=== PATIENT | female | born 1955 | race Caucasian/White ===

== ENCOUNTER 2019-11-04 08:30 | Day surgery (SDC) | payer OTHER ==
[~2019-11-04] VITALS: Ht 170.2 cm; Wt 79.4 kg
[~2019-11-04 08:30] MED LIST: ADULT ASPIRIN R81 MG PO; AMLODIPINE BESYL5 MG PO; CALCIUM 600 +1 EAC2 PO; CHANTIX1 MG PO; GABAPENTIN300 MG PO; INDOMETHACIN50 MG PO; LOVASTATIN40 MG PO; OMEPRAZOLE20 MG PO; TRAZODONE HCL50 MG PO; ZESTRIL40 MG PO
--- NOTE | 2019-11-04 10:53 | NUR ---
11/04/19 1053 Ligia Finley 1046 PT ARRIVED TO PACU ON 2L VIA NC, PT WAKES TO VERBAL STIMULI AND DENIES PAIN AND NAUSEA. PLAN OF CARE DISCUSSED. PT FALLS BACK TO SLEEP EASILY. VSS.
--- NOTE | 2019-11-05 10:14 | OR ---
[facility] [address] [place], [place] [address] Signed DATE OF OPERATION: 11/04/2019 SURGEON: Candice Mcdermott MD PREOPERATIVE DIAGNOSES: 1. Gastroesophageal reflux, on PPI medication. 2. Colon screening. POSTOPERATIVE DIAGNOSES: 1. Jiuvmqzi-gb-aptwt size hiatal hernia with Soto's esophagus. 2. Hyperplastic polyps of rectosigmoid and rectum. PROCEDURES PERFORMED: 1. Esophagogastroduodenoscopy with biopsy. 2. Total colonoscopy to cecum with cold morcellation polypectomy x5. ANESTHESIA: Intravenous sedation, fentanyl 100 mcg, Versed 7 mg. INDICATION: This 64-year-old white woman is a patient of Dr. Cassi Hanley of the [facility]. She underwent colonoscopy at the [facility] in 2013 and was sought not to have any significant pathologic findings at that time. She has been recommended to have surveillance colonoscopy. She is symptom-free. Additionally, she does have reflux symptoms. She does take PPI medication for this. She has no dysphagia. She does take indomethacin on a daily basis related to arthritis problems. Additionally, she smokes 1/2 pack of cigarettes a day. She does not drink alcohol particularly. She is admitted at this time to undergo upper endoscopy and colonoscopy. She understands the risks of bleeding, infection, and perforation. FINDINGS: Upper endoscopy showed a qcrxvvzv-kc-xxwra size hiatal hernia with significant Soto's esophagus. There was no sign of stricture or neoplasm. Stomach, duodenum, vocal cords and proximal esophagus were normal. Colonoscopy showed an adequate prep. Colonoscopy was undertaken to the cecum which was challenging as was the redundant colon. She had only hyperplastic-appearing polyps of the rectosigmoid and rectum. Five such polyps were excised. Electronically Signed By: CANDICE MCDERMOTT MD 11/05/19 1014 PATIENT NAME: RITA SOUSA OPERATIVE REPORT DATE OF : 53 REPORT #: [id number] PHYSICIAN: CANDICE MCDERMOTT MD PCP: CASSI HANLEY MD REPORT IS CONFIDENTIAL AND NOT TO BE RELEASED WITHOUT AUTHORIZATION [facility] [address] [place], [place] [address] Signed DESCRIPTION OF PROCEDURE: The patient was brought to the endoscopy suite, given topical Hurricaine spray, hypopharyngeal anesthesia and placed in lateral decubitus position. She was given intravenous sedation to the point of slurred speech and nystagmus with full cardiopulmonary monitoring. A bite block was placed. An Olympus video upper endoscope was passed in the hypopharynx. The vocal cords visualized as normal. The scope was advanced to the esophagus throughout its length. It was normal except in the distal portion where there was obvious and rather significant Soto's esophagus, but no sign of stricture or neoplasm. Scope was advanced to the stomach, which was insufflated with air. Rugal folds were normal. Pylorus was normal. The scope was passed through into the duodenum, which was also normal. Biopsies were taken of the duodenum. Scope was withdrawn to the stomach. Biopsies were taken of the antrum for both EDITH and pathologic testing. Retroflexed view of the stomach showed a sizable hiatal hernia. The scope was withdrawn to the distal esophagus and biopsies were taken of field representative/health education mucosal areas of Soto's esophagus. The scope was withdrawn and biopsies were taken of middle third of the esophagus as well. The scope was removed. Plans were then made for colonoscopy. Digital rectal examination was normal. An Olympus video colonoscope was passed in the rectum and manipulated throughout the colon. This colon was rather redundant. Various maneuvers were required ultimately to reach the cecum which was accomplished. Ileocecal valve and appendiceal orifice were normal. Scope was withdrawn from that point. Examination throughout showed no sign of abnormality into the rectosigmoid where there were multiple obvious hyperplastic polyps. Five such polyps were excised in total. There were some remaining I am sure. The scope was then removed. The patient taken to recovery room in good condition. CONCLUDING DIAGNOSES: 1. Hiatal hernia with Soto's esophagus. 2. Hyperplastic-appearing polyps of rectosigmoid. PLAN: Recommend continued use of PPI medication based on Soto's. Would repeat upper endoscopy in 3 years as long as pathology report shows no evidence of dysplasia currently. As regards colonoscopy, recommend repeat colonoscopy in seven years or sooner if clinically indicated. She will return to the ongoing care of Dr. Cassi Hanley at [facility]. Electronically Signed By: CANDICE MCDERMOTT MD 11/05/19 1014 PATIENT NAME: RITA SOUSA OPERATIVE REPORT DATE OF : 53 REPORT #: [id number] PHYSICIAN: CANDICE MCDERMOTT MD PCP: CASSI HANLEY MD REPORT IS CONFIDENTIAL AND NOT TO BE RELEASED WITHOUT AUTHORIZATION [address] [address] Signed Candice Mcdermott MD JM/MODL /[id number] cc: Cassi Hanley MD Copies: CASSI HANLEY MD ~ Electronically Signed By: CANDICE MCDERMOTT MD 11/05/19 1014 PATIENT NAME: RITA SOUSA ALEJANDRO OPERATIVE REPORT DATE OF : 53 REPORT #: [id number] PHYSICIAN: CANDICE MCDERMOTT MD PCP: CASSI HANLEY MD REPORT IS CONFIDENTIAL AND NOT TO BE RELEASED WITHOUT AUTHORIZATION
--- NOTE | 2019-11-07 16:00 | PATH ---
[facility] [address] [place], [place] [address] Signed SPECIMEN(S): A DUODENUM NOS SPECIMEN(S): B ANTRUM/PYLORUS SPECIMEN(S): C BECERRIL'S ESOPHAGUS SPECIMEN(S): D MIDDLE ESOPHAGUS SPECIMEN(S): E RECTOSIGMOID POLYP SPECIMEN SOURCE: A. DUODENUM NOS B. ANTRUM/PYLORUS C. BECERRIL'S ESOPHAGUS D. MIDDLE ESOPHAGUS E. RECTOSIGMOID POLYP CLINICAL HISTORY: History of reflux with esophagitis. History chronic constipation. Post-op: Hiatal hernia, Becerril's esophagitis. MICROSCOPIC DESCRIPTION: Histologic sections of all submitted blocks are examined by light microscopy. These findings, together with the gross examination, support the pathologic diagnosis. FINAL PATHOLOGIC DIAGNOSIS: A. Duodenum, biopsy: - Benign duodenal mucosa, negative for specific diagnostic abnormality. B. Antrum/pylorus, biopsy: - Benign gastric type mucosa with focal slight chronic inflammation. - Negative for evidence of Helicobacter organisms on routine HE stained sections. C. Becerril's esophagus, biopsy: - Squamocolumnar junction with specialized intestinal (goblet cell) metaplasia, negative for dysplasia. D. Mid esophagus, biopsy: - Benign esophageal mucosa, negative for increased epithelial eosinophils. E. Rectosigmoid polyp, biopsy: - Hyperplastic polyp (multiple fragments). JVR:cml:C2NR GROSS DESCRIPTION: Five specimens are received in five containers, labeled "TL." A. The specimen, labeled "TL, duodenal biopsy," is received in formalin and consists of a single 0.3 cm, faust-pink tissue fragment. The specimen is PATIENT NAME: RITA SOUSA PATHOLOGY DATE OF : 53 REPORT #: [id number] PHYSICIAN: WILBER LAM PCP: CSASI TREJO MD REPORT IS CONFIDENTIAL AND NOT TO BE RELEASED WITHOUT AUTHORIZATION [facility] [address] [place], [place] [address] Signed entirely submitted in cassette (A1). B. The specimen, labeled "TL, antrum biopsy," is received in formalin and consists of two, 0.2 and 0.3 cm faust tissue fragments. The specimen is entirely submitted in cassette (B1). C. The specimen, labeled "TL, Becerril's esophagus," is received in formalin and consists of five, 0.2-0.3 cm, faust-pink tissue fragments. The specimen is entirely submitted in cassette (C1). D. The specimen, labeled "TL, mid-esophageal biopsy," is received in formalin and consists of two, 0.2 and 0.3 cm, faust-white tissue fragments. The specimen is entirely submitted in cassette (D1). E. The specimen, labeled "TL, rectosigmoid polyp," is received in formalin and consists of seven, 0.1-0.2 cm, faust tissue fragments. The specimen is entirely submitted in cassette (E1). AM (under the direct supervision of a pathologist) The Gross Description was prepared using a voice recognition system. The report was reviewed for accuracy; however, sound-alike word errors, addition and/or deletions may occur. If there is any question about this report, please contact Client Services. PERFORMING LABORATORY: The technical component was performed by [employer], [address] [place] [id number] (Record Tabulating Clerk: Haleigh Bentley MD; CLIA# [id number]). Professional interpretation was performed by [employer], [facility], [address] [place] [address] Ave[address] [place] [address] (Record Tabulating Clerk: Abiodun Bella M.D.). Diagnostician: Abiodun Bella MD Pathologist Electronically Signed 11/07/2019 Copies: ~ PATIENT NAME: RITA SOUSA ALEJANDRO PATHOLOGY DATE OF : 53 REPORT #: [id number] PHYSICIAN: WIL[facility] PATHOLOGY PCP: CASSI TREJO MD REPORT IS CONFIDENTIAL AND NOT TO BE RELEASED WITHOUT AUTHORIZATION
== END 2019-11-04 11:30 | disposition home or self-care (01) ==
LOC: DS 08:30 → OPS 08:30 → DS 10:45 → OPS 10:45
PROVIDERS: Surgery
PROC: 0DB28ZX Excision of Middle Esophagus, Via Natural or Artificial Opening Endoscopic, Diagnostic (ICD-10-PCS; 2019-11-04)
PROC: 0DBN8ZZ Excision of Sigmoid Colon, Via Natural or Artificial Opening Endoscopic (ICD-10-PCS; 2019-11-04)
PROC: 0DB98ZX Excision of Duodenum, Via Natural or Artificial Opening Endoscopic, Diagnostic (ICD-10-PCS; principal; 2019-11-04 09:45)
PROC: 0DB78ZX Excision of Stomach, Pylorus, Via Natural or Artificial Opening Endoscopic, Diagnostic (ICD-10-PCS; 2019-11-04 09:45)
DX: Z12.11 Encounter for screening for malignant neoplasm of colon (principal); K63.5 Polyp of colon; K62.1 Rectal polyp; K29.50 Unspecified chronic gastritis without bleeding; K44.9 Diaphragmatic hernia without obstruction or gangrene; K22.70 Barrett's esophagus without dysplasia; K21.9 Gastro-esophageal reflux disease without esophagitis; I10 Essential (primary) hypertension; K59.09 Other constipation; M54.9 Dorsalgia, unspecified; G89.29 Other chronic pain; F17.210 Nicotine dependence, cigarettes, uncomplicated; Z79.82 Long term (current) use of aspirin; Z79.899 Other long term (current) drug therapy; Z98.890 Other specified postprocedural states
CPT/HCPCS: 99153; G0500; J2250; J3010; J7121

== ENCOUNTER 2023-01-29 07:50 | Day surgery (SDC) | payer OTHER ==
[~2023-01-29] VITALS: Ht 170.2 cm; Wt 82.3 kg
[~2023-01-29 07:50] MED LIST changes: +ATIVAN0.5 MG PO; +ATORVASTATIN CA20 MG PO; +CAPSAICIN60 GM TOP; +FLUTICASONE PRO16 GM NAS; +HYDROCHLOROTHIA25 MG PO; +MULTIPLE VITAM1 EAC2 PO; +NYSTATIN100000 UN1 PO; +PROBIOTIC ACID1 EAC3 PO; +PROZAC20 MG PO; +VITAMIN C1000 MG PO; +VITAMIN D325 MC4 PO
[2023-01-29] MEDS ORDERED: VENTOLIN HFA18 GM INH (08:21)
--- NOTE | 2023-01-29 09:04 | NUR ---
01/29/23 0904 Ligia Finley 0857 PT ARRIVED TO PACU ON 2L VIA NC, PT WAKES EASILY AND DENIES PAIN. PLAN OF CARE DISCUSSED. 0859 PT ASLEEP AND PERIOD OF APNEA NOTED, RN WAKES PT AND ENCOURGES DEEP BREATHING AND EDUCATION GIVEN ON MEDICATIONS. 09 PT ASLEEP AND SNORING NOTED, HOB INCREASED SLIGHTLY. SNORING DECREASED.
--- NOTE | 2023-01-29 16:55 | OR ---
[facility] [address] [place], [place] [address] Signed DATE OF OPERATION: 01/29/2023 SURGEON: Jeremy Ram MD PREOPERATIVE DIAGNOSES: 1. Moderate to large sized hiatal hernia. 2. Soto's esophagus. 3. Chronically hoarse voice. POSTOPERATIVE DIAGNOSES: 1. Mild to moderate diffuse gastritis. 2. Moderate-sized hiatal hernia (38-32 cm). 3. Soto's esophagus. PROCEDURE: Esophagogastroduodenoscopy with CLOtest and biopsies of the antrum and GE junction. ESTIMATED BLOOD LOSS: None. INDICATIONS: Marlene is a 67-year-old female, asked to see me for a followup upper endoscopy. She went through her upper endoscopy in October [address] Martinez at age of 65. She was noted to have a jdmsfdpw-wu-nizku sized hiatal hernia associated with Soto's esophagus. There was no dysplasia. She had done well with Versed and fentanyl. She was asked to follow up in three years. She describes her chronically hoarse voice. She thinks it got worse when she had her VATS procedure for a small lung cancer back in May 2021. However, she never needed chemo or radiation therapy. That would seem unusual to be associated with her recurrent laryngeal nerve. In addition, she has to use hydrocodone for her chronic back pain. However, she did well back in 2019 on Versed and fentanyl despite the hydrocodone. She really describes no esophageal dysphagia. She does well with her omeprazole. In the office, I gave her a pamphlet on upper endoscopy. We had reviewed the nature of the test along with the risks including, but not limited to gas bloating, crampy abdominal pain, bleeding, perforation requiring surgery, and missed diagnosis. We also reviewed the need for IV sedation. She had expressed understanding and wished to proceed. PROCEDURE IN DETAIL: Marlene was taken into our endoscopy suite and placed in the supine semi-recumbent position. The posterior oropharynx was anesthetized with Hurricaine spray. A bite Electronically Signed By: JEREMY RAM MD 01/29/23 1658 PATIENT NAME: MARLENE SOUSA OPERATIVE REPORT DATE OF : 53 REPORT #: [id number] PHYSICIAN: JEREMY RAM MD PCP: CASSI TREJO MD REPORT IS CONFIDENTIAL AND NOT TO BE RELEASED WITHOUT AUTHORIZATION [facility] [address] [place], [place] [address] Signed block was utilized for the case. She was given a total of 5 mg of Versed and 100 mcg of fentanyl to cover the case. The adult gastroscope was introduced and advanced under direct visualization of camera. The duodenum and pyloric channel were unremarkable. Her stomach shows mild diffuse erythematous changes most likely from her smoking. We went and took a biopsy of the antrum for CLOtest as well as pathologic review. There were no ulcerations. Upon retroflexion of scope, we can see a moderate-sized hiatal hernia. The scope was withdrawn up through the area of the GE junction which was compliant without stricture. There were no gastric or esophageal varices. It looks like her hiatal hernia measures from 38 cm back to 32 cm. Part of that includes the Soto's esophagus. We then took several circumferential biopsies to involve the Soto's esophagus. Otherwise, the distal middle and upper esophagus were unremarkable. Her vocal cords appear to be unremarkable. She seems to have some chronic edema to the retinoid and the epiglottis. After this, the gas was suctioned out and the gastroscope removed. Marlene tolerated the procedure quite well. RECOMMENDATIONS: I will see Marlene back in my office in 7 to 14 days to review her results. She will likely be on a 3-5 year plan for her Soto's esophagus. Jeremy Ram MD ALB/MODL /[id number] cc: Jeremy Ram MD [place], [place] Copies: JEREMY RAM MD ~ Electronically Signed By: JEREMY RAM MD 01/29/23 1655 PATIENT NAME: MARLENE SOUSA OPERATIVE REPORT DATE OF : 53 REPORT #: [id number] PHYSICIAN: JEREMY RAM MD PCP: CASSI TREJO MD REPORT IS CONFIDENTIAL AND NOT TO BE RELEASED WITHOUT AUTHORIZATION
--- NOTE | 2023-01-30 16:27 | PATH ---
[facility] [address] [place], [place] [address] Signed SPECIMEN(S): A ANTRUM BIOPSY SPECIMEN(S): B GE JUNCTION SPECIMEN SOURCE: A. ANTRUM BIOPSY B. GE JUNCTION CLINICAL HISTORY: Pre: 2019 moderate to large hiatal hernia associated with Soto's esophagus. Postop: Hiatal hernia, Soto's esophagus and gastritis FINAL PATHOLOGIC DIAGNOSIS: A. Stomach, antrum, biopsy: - No significant histopathologic alterations. B. GE junction, biopsy: - Soto's esophagus. - Soto's epithelium focally present under squamous epithelium. - No evidence of dysplasia. COMMENT: A: The sections through the gastric biopsies show fragments of histologically unremarkable antral mucosa. There is no evidence of acute or chronic inflammation. There is no evidence of H. pylori, intestinal metaplasia, abnormal infiltrates or neoplasia. B: The sections through the biopsy show the presence of both squamous and glandular mucosa. The squamous epithelium appears reactive. The areas of glandular mucosa contain specialized intestinal epithelium including the presence of goblet cells. There is no evidence of dysplasia or malignancy. There are areas of Soto's epithelium located under the squamous epithelium. This raises the possibility of a more extensive lesion than appreciated endoscopically. There is no evidence of H. pylori associated with the glandular mucosa. TWK:cml:C2NR MICROSCOPIC EXAMINATION: Histologic sections of all submitted blocks are examined by light microscopy. These findings, together with the gross examination, support the pathologic diagnosis. GROSS DESCRIPTION: A. The specimen, labeled and designated "Lozo, antrum biopsy," is received in PATIENT NAME: RITA SOUSA PATHOLOGY DATE OF : 53 REPORT #: [id number] PHYSICIAN: WILBER LAM PCP: CASSI TREJO MD REPORT IS CONFIDENTIAL AND NOT TO BE RELEASED WITHOUT AUTHORIZATION [address] [address] Signed formalin and consists of one faust soft tissue fragment measuring 0.4 cm. Entirely submitted in (A1). B. The specimen, labeled and designated "Lorui, GE junction biopsy," is received in formalin and consists of three faust soft tissue fragments, ranging from 0.3 to 0.4 cm. Entirely submitted in (B1). VB (under the direct supervision of a pathologist) The Gross Description was prepared using a voice recognition system. The report was reviewed for accuracy; however, sound-alike word errors, addition and/or deletions may occur. If there is any question about this report, please contact Client Services. PERFORMING LABORATORY: The technical component was performed by [employer], [address] [place] [address] (CLIA# [id number]). The professional interpretation was performed by [facility], [facility], [facility] [address] [place] [id number] (CLIA#: [id number]). Diagnostician: Percy Barbour MD Pathologist Electronically Signed 01/30/2023 Copies: ~ PATIENT NAME: RITA SOUSA PATHOLOGY DATE OF : 53 REPORT #: [id number] PHYSICIAN: WILBER LAM PCP: CASSI TREJO MD REPORT IS CONFIDENTIAL AND NOT TO BE RELEASED WITHOUT AUTHORIZATION
== END 2023-01-29 09:50 | disposition home or self-care (01) ==
LOC: DS 07:50 → OPS 07:50
PROVIDERS: ATTEND Colon & Rectal Surgery
PROC: 0DB68ZX Excision of Stomach, Via Natural or Artificial Opening Endoscopic, Diagnostic (ICD-10-PCS; 2023-01-29)
PROC: 0DB48ZX Excision of Esophagogastric Junction, Via Natural or Artificial Opening Endoscopic, Diagnostic (ICD-10-PCS; principal; 2023-01-29 09:00)
DX: K22.70 Barrett's esophagus without dysplasia (principal); K29.70 Gastritis, unspecified, without bleeding; K44.9 Diaphragmatic hernia without obstruction or gangrene
CPT/HCPCS: 36415; 87077; 99153; G0500; J2250; J3010; J7121